=== PATIENT | male | born 1975 | race African-American/Black ===

== ENCOUNTER 2020-01-20 15:36 | Emergency (ER) | payer MEDICAID ==
[~2020-01-20] VITALS: Ht 188 cm; Wt 90.9 kg
[~2020-01-20 15:36] MED LIST: NOCURR
[2020-01-20] MEDS ORDERED: ONDANSETRON HCL 4 MG/2 ML VIAL IVP ONE (16:30)
[2020-01-20 17:50] LABS: BASOPHILS % (AUTO) 0.4 % (0.0-2.0); EOSINOPHILS % (AUTO) 0.7 % (1.0-6.0); HEMATOCRIT 37.4 % (41-53); HEMOGLOBIN 12.1 g/dL (13.5-17.5); LYMPHOCYTES # (AUTO) 0.9 K/uL (1.0-4.8); LYMPHOCYTES % (AUTO) 12.7 % (22.0-44.0); MEAN CORPUSCULAR HEMOGLOBIN 33.1 pg (26.0-34.0); MEAN CORPUSCULAR HGB CONC 32.4 G/dL (31.0-37.0); MEAN CORPUSCULAR VOLUME 102 fL (80-100); MONOCYTES # (AUTO) 0.5 K/uL (0.1-1.0); MONOCYTES % (AUTO) 6.9 % (2.0-9.0); NEUTROPHILS # (AUTO) 5.5 K/uL (1.8-7.7); NEUTROPHILS % (AUTO) 79.3 % (40.0-70.0); PLATELET COUNT (AUTO) 200 K/uL (150-450); RED BLOOD CELL COUNT(AUTO) 3.67 MIL/uL (4.50-5.90); RED CELL DISTRIBUTION WIDTH 12.6 % (11.5-14.5)
[2020-01-20 18:10] LABS: ANION GAP 9 mmol/L (8-16); CALCIUM, TOTAL 9.3 mg/dL (8.8-10.5); CARBON DIOXIDE 27 mmol/L (22-29); CHLORIDE 103 mmol/L (98-107); CREATININE 1.02 mg/dL (0.60-1.30); GLOMERULAR FILTR. RATE CALC > 60 mL/min (>60); GLUCOSE,RANDOM 75 mg/dL (70-110); POTASSIUM 3.9 mmol/L (3.5-5.1); SODIUM SERUM 139 mmol/L (136-145); UREA NITROGEN, BLOOD 13 mg/dL (7-18)
[2020-01-20 18:32] LABS: ALANINE AMINOTRANSFERASE 25 U/L (12-78); ALBUMIN 4.3 g/dL (3.4-5.0); ALKALINE PHOSPHATASE 68 U/L (46-116); ASPARTATE AMINOTRANSFERASE 19 U/L (15-37); BILIRUBIN,TOTAL 0.9 mg/dL (0.1-1.0); CREATINE KINASE, TOTAL ONLY 272 U/L (39-308)
[2020-01-20 20:23] LABS: AMPHET/METH SCREEN,URINE POSITIVE (NEGATIVE); BARBITURATE SCREEN, URINE NEGATIVE (NEGATIVE); BENZODIAZEPINES SCREEN,URINE NEGATIVE (NEGATIVE); CANNABINOID SCREEN,URINE POSITIVE (NEGATIVE); COCAINE SCREEN,URINE NEGATIVE (NEGATIVE); METHADONE SCREEN, URINE NEGATIVE (NEGATIVE); OPIATE SCREEN,URINE NEGATIVE (NEGATIVE)
[2020-01-20 20:38] LABS: PHENCYCLIDINE SCREEN,URINE NEGATIVE (NEGATIVE)
[2020-01-20 20:54] VITALS: BP 140/98
== END 2020-01-21 00:40 | disposition home or self-care (01) ==
LOC: EMS 15:38
DX: T50.7X1A Poisoning by analeptics and opioid receptor antagonists, accidental (unintentional), initial encounter (principal); F15.10 Other stimulant abuse, uncomplicated; M79.89 Other specified soft tissue disorders; Y92.89 Other specified places as the place of occurrence of the external cause
CPT/HCPCS: 36415; 71046; 80053; 80307; 82550; 84484; 85025; 93005; 96374; 99285; G0480; J2405

== ENCOUNTER 2020-04-06 23:02 | Emergency (ER) | payer MEDICAID ==
[~2020-04-06] VITALS: Ht 188 cm; Wt 90.9 kg
[2020-04-07 01:28] VITALS: BP 122/80
== END 2020-04-07 03:00 | disposition left against medical advice (07) ==
LOC: EMS 23:04
DX: M25.511 Pain in right shoulder (principal); Z53.21 Procedure and treatment not carried out due to patient leaving prior to being seen by health care provider

== ENCOUNTER 2021-12-27 22:17 | Emergency (ER) | payer MEDICAID ==
[~2021-12-27] VITALS: Ht 188 cm; Wt 94.5 kg
[2021-12-27] MEDS ORDERED: DOXY-354 PO (22:40)
[2021-12-27] MEDS ORDERED: SULF-261 PO (22:40)
[2021-12-27 22:50] VITALS: BP 148/99
== END 2021-12-28 03:30 | disposition home or self-care (01) ==
LOC: EMS 22:17
DX: S00.262A Insect bite (nonvenomous) of left eyelid and periocular area, initial encounter (principal); L03.211 Cellulitis of face; L02.01 Cutaneous abscess of face; W57.XXXA Bitten or stung by nonvenomous insect and other nonvenomous arthropods, initial encounter; Y93.89 Activity, other specified; Y92.89 Other specified places as the place of occurrence of the external cause; Y99.8 Other external cause status
CPT/HCPCS: 99283

== ENCOUNTER 2023-06-22 23:35 | Emergency (ER) | payer MEDICAID ==
[~2023-06-22] VITALS: Ht 188 cm; Wt 93.2 kg
[~2023-06-22 23:35] MED LIST changes: +DOXY-354 PO; +SULF-261 PO
[2023-06-23] MEDS ORDERED: IBUP-1554 PO (00:42)
[2023-06-23] MEDS ORDERED: ACET-66 PO (00:42)
[2023-06-23] MEDS ORDERED: HYDR30CR39 TP (00:42)
[2023-06-23] MEDS ORDERED: IBUPROFEN 600 MG TABLET PO ONE (00:45)
[2023-06-23] MEDS ORDERED: ACETAMINOPHEN 500 MG TABLET PO ONE (00:45)
[2023-06-23] MEDS ORDERED: HYDROCORTISONE 2.5% 30 GM CREAM TP SCH (00:45)
[2023-06-23] MEDS: HYDROCORTISONE 1% 30 GM CREAM TP SCH ×3 (00:48→00:50)
[2023-06-23 01:15] VITALS: BP 146/90; PULSE 88; RESP 14; TEMP 97.3
== END 2023-06-23 01:15 | disposition home or self-care (01) ==
LOC: EMS 23:36
DX: L25.9 Unspecified contact dermatitis, unspecified cause (principal); L98.8 Other specified disorders of the skin and subcutaneous tissue; Z90.49 Acquired absence of other specified parts of digestive tract
CPT/HCPCS: 99284; Z7502; Z7610